=== PATIENT | female | born 1980 | race Caucasian/White ===

== ENCOUNTER 2022-07-27 10:43 | Inpatient (IN) | payer OTHER ==
[~2022-07-27] VITALS: Ht 165.1 cm; Wt 88.5 kg
== END 2022-07-29 14:04 | disposition home or self-care (01) | DRG 812 ==
LOC: ER 10:43 → SEC-K 17:52 → MEDI 17:52
PROVIDERS: ADMIT Internal Medicine; ATTEND Internal Medicine
PROC: 30233N1 Transfusion of Nonautologous Red Blood Cells into Peripheral Vein, Percutaneous Approach (ICD-10-PCS; principal; 2022-07-28)
DX: D50.8 Other iron deficiency anemias (principal); N92.0 Excessive and frequent menstruation with regular cycle; E66.8 Other obesity; Z68.34 Body mass index [BMI] 34.0-34.9, adult; Z20.822 Contact with and (suspected) exposure to COVID-19